=== PATIENT | male | born 1995 | race Caucasian/White ===

== ENCOUNTER 2022-01-10 20:51 | Emergency (ER) | payer OTHER ==
[~2022-01-10 20:51] MED LIST: CIPRO500 M1 PO; FLAGYL500 MG PO; MELATONIN10 MG PO; ZOFRAN4 MG PO
[2022-01-10] MEDS ORDERED: AMOX TR-K CLV1 EAC4 PO (22:34)
== END 2022-01-11 00:08 | disposition home or self-care (01) ==
LOC: FER 20:51
DX: S50.872A Other superficial bite of left forearm, initial encounter (principal); I51.9 Heart disease, unspecified; Z23 Encounter for immunization; Z88.8 Allergy status to other drugs, medicaments and biological substances; W54.0XXA Bitten by dog, initial encounter; Y92.410 Unspecified street and highway as the place of occurrence of the external cause
CPT/HCPCS: 90375; 90471; 90675; 90715; 96372; 99283